=== PATIENT | male | born 1965 | race Caucasian/White ===

== ENCOUNTER → 2022-01-02 10:52 | Outpatient (BNVA) | payer SELFPAY | PROVIDERS: Visit Provider Physician Assistant | DX: Z02.79 Encounter for issue of other medical certificate (principal) ==

== ENCOUNTER 2023-10-12 10:39 | Outpatient (AMB) | payer OTHER, SELFPAY ==
--- NOTE | 2023-10-12 10:48 | HO.NEPHOV ---
HPI HPI Comments History of Present Illness Details I had the pleasure of seeing Sonny in follow-up of his hypertension. He has acquired solitary kidney following nephrectomy for renal cell cancer. He has been drinking a bit more alcohol than is usual, lately. He does not check his blood sugars. He is on Jardiance. His renal functions are at baseline. He has been tolerating metformin. He recently had a small bowel obstruction from adhesions which was conservatively managed. He does not have any nausea vomiting, abdominal pain, chest pain, shortness of breath, nausea vomiting, diarrhea, pedal edema, orthostatic symptoms, hematuria. He has been on Flomax. He is not taking any nonsteroidal anti-inflammatory medications. [facility], [facility] Medical History (Updated 10/12/23 @ 11:13 by Michael Smith MD) Absence of kidney Renal cell cancer Proteinuria Essential (primary) hypertension Surgical History (Updated 10/12/23 @ 09:11 by Virginia Boyle MA) History of nephrectomy Family History (Updated 10/12/23 @ 10:53 by Virginia Boyle MA) Brother Diabetes Mother Diabetes Social History (Updated 10/12/23 @ 10:53 by Vriginia oByle MA) Alcohol intake: current Patient Tobacco Use Status: Never used Tobacco Vital Signs 10/12/23 10:49 Height 5 ft 10 in Weight 234 lb 4 oz BMI 33.6 BP 130/60 Blood Pressure Location Lt brachial Position Sitting Pulse 95 Pulse Source Pulse Oximeter Physical Exam Vital Signs: Last Vital Signs Pulse 95 10/12/23 10:49 BP 130/60 10/12/23 10:49 BMI result Body Mass Index 33.6 Const General: comfortable and no acute distress Orientation/consciousness: patient oriented x3 HEENT Head: Yes normocephalic Mouth: Normal oral and palatal mucosa present Eyes EOM: EOMs intact bilaterally Neck Neck: Yes supple Resp Auscultation: clear to auscultation bilaterally Cardio Jugular venous distension: no JVD Rate: regular rate GI Palpation (GI): Soft to palpation Auscultation: normal bowel sounds General: Yes no CVA tenderness Back/Spine/Pelvis Back: no CVA tenderness Skin General skin exam: no rashes or lesions noted Neuro General: patient oriented x3 and moves all extremities Extrem General: Yes no pedal edema Assessment & Plan Assessment & Plan (1) Essential (primary) hypertension: Code(s): I10 - Essential (primary) hypertension (2) Absence of kidney: Code(s): Z90.5 - Acquired absence of kidney Plan Sonny has acquired solitary kidney after nephrectomy for renal cell cencer. He needs to follow up his Urologist. His blood pressure is currently well controlled. He is tolerating his BRIAN inhibitors. He is diabetic. He does not check his blood sugar regularly. He is not known to have any proteinuria. He is on Jardiance. His volume status is optimal. His blood pressure is currently at goal. He needs to be on a low-sodium diet and should lose weight. He should remain well hydrated and avoid NSAID's. I did not make any medication changes today. All questions were answered and follow-up blood work and urine studies were ordered. Time spent retrieving data, patient encounter and documentation 27 minutes Orders: Orders Electrolytes Today I10 - Essential (primary) hypertension, Z90.5 - Acquired absence of kidney Blood Urea Nitrogen Today I10 - Essential (primary) hypertension, Z90.5 - Acquired absence of kidney Calcium Today I10 - Essential (primary) hypertension, Z90.5 - Acquired absence of kidney UA and rflx microscopic Today I10 - Essential (primary) hypertension, Z90.5 - Acquired absence of kidney Creatinine Today I10 - Essential (primary) hypertension, Z90.5 - Acquired absence of kidney Protein Creatinine Ratio, Ur Today I10 - Essential (primary) hypertension, Z90.5 - Acquired absence of kidney Coding Level of Care Code Est Pt Level 3 (68415) Diagnoses Essential (primary) hypertension I10 Absence of kidney Z90.5
[2023-10-12 10:49] VITALS: BP 130/60; PULSE 95; BMI 33.6
== END 2023-10-12 11:23 | disposition home or self-care (01) ==
PROVIDERS: Visit Provider Internal Medicine Nephrology
DX: I10 Essential (primary) hypertension (principal); Z90.5 Acquired absence of kidney
CPT/HCPCS: 99214

== ENCOUNTER → 2023-10-12 10:39 | Outpatient (BNVA) | payer OTHER, SELFPAY | PROVIDERS: Visit Provider Internal Medicine Nephrology ==

== ENCOUNTER 2024-04-12 09:19 | Outpatient (AMB) | payer OTHER, SELFPAY ==
--- NOTE | 2024-04-12 09:37 | HO.NEPHOV_ITS ---
Vital Signs 04/12/24 09:43 Height 5 ft 10 in Weight 228 lb BMI 32.7 BP 124/70 Blood Pressure Location Lt brachial Position Sitting Pulse 89 Pulse Source Pulse Oximeter Pulse Oximetry (%) 96 Oxygen Delivery Method Room Air Intake Visit Reasons: CKD/ Confirmed Bone Puller Required: No Accompanied by: Self / Same As Patient Allergies No Known Allergies Allergy (Verified 04/12/24 09:46) HPI Comments Details: I had the pleasure of seeing Sonny in follow-up of his hypertension. He has acquired solitary kidney following nephrectomy for renal cell cancer. He has been drinking a bit more alcohol than is usual, lately. He does not check his blood sugars. He is on Jardiance. His renal functions had been at baseline. He has been tolerating metformin. He has H/O small bowel obstruction from adhesions which was conservatively managed. He does not have any nausea vomiting, abdominal pain, chest pain, shortness of breath, nausea vomiting, diarrhea, pedal edema, orthostatic symptoms, hematuria. He has been on Flomax. He is not taking any nonsteroidal anti-inflammatory medications. He is using CPAP regularly. His A1c has gone up. [facility] Medical History (Updated 10/12/23 @ 11:13 by Michael Smith MD) Absence of kidney Renal cell cancer Proteinuria Essential (primary) hypertension Surgical History (Updated 10/12/23 @ 09:11 by Virginia Boyle MA) History of nephrectomy Family History (Updated 10/12/23 @ 10:53 by Virginia Boyle MA) Brother Diabetes Mother Diabetes Social History (Updated 10/12/23 @ 10:53 by Virginia Boyle MA) Alcohol intake: current Patient Tobacco Use Status: Never used Tobacco Physical Exam Const General: comfortable and no acute distress Orientation/consciousness: patient oriented x3 HEENT Head: Yes normocephalic Mouth: Normal oral and palatal mucosa present Eyes EOM: EOMs intact bilaterally Neck Neck: Yes supple Resp Auscultation: clear to auscultation bilaterally Cardio Jugular venous distension: no JVD Rate: regular rate GI Palpation (GI): Soft to palpation Auscultation: normal bowel sounds General: Yes no CVA tenderness Back/Spine/Pelvis Back: no CVA tenderness Skin General skin exam: no rashes or lesions noted Neuro General: patient oriented x3 and moves all extremities Extrem General: Yes no pedal edema Assessment & Plan Assessment & Plan (1) Absence of kidney: Code(s): Z90.5 - Acquired absence of kidney Category: Medical (2) Essential (primary) hypertension: Code(s): I10 - Essential (primary) hypertension Category: Medical Plan Sonny has acquired solitary kidney after nephrectomy for renal cell cencer. He needs to follow up his Urologist. His blood pressure is currently well controlled. He is tolerating his BRIAN inhibitors. He is diabetic. He does not check his blood sugar regularly. He is not known to have any proteinuria. He is on Jardiance. His volume status is optimal. His blood pressure is currently at goal. He needs to be on a low-sodium diet and should lose weight. He should remain well hydrated and avoid NSAID's. I did not make any medication changes today. All questions were answered and follow-up blood work and urine studies were ordered. Orders: Orders Creatinine Today I10 - Essential (primary) hypertension, Z90.5 - Acquired absence of kidney Blood Urea Nitrogen Today I10 - Essential (primary) hypertension, Z90.5 - Acquired absence of kidney Electrolytes Today I10 - Essential (primary) hypertension, Z90.5 - Acquired absence of kidney Protein Creatinine Ratio, Ur Today I10 - Essential (primary) hypertension, Z90.5 - Acquired absence of kidney Coding Level of Care Code Est Pt Level 4 (69344) Diagnoses Absence of kidney Z90.5 Essential (primary) hypertension I10
[2024-04-12 09:43] VITALS: BP 124/70; PULSE 89; O2SAT 96; BMI 32.7
== END 2024-04-12 10:05 | disposition home or self-care (01) ==
PROVIDERS: Visit Provider Internal Medicine Nephrology
DX: Z90.5 Acquired absence of kidney (principal); I10 Essential (primary) hypertension
CPT/HCPCS: 99214

== ENCOUNTER → 2024-04-12 09:19 | Outpatient (BNVA) | payer OTHER, SELFPAY | PROVIDERS: Visit Provider Internal Medicine Nephrology | DX: I10 Essential (primary) hypertension (principal); Z90.5 Acquired absence of kidney ==

== ENCOUNTER 2024-10-11 09:42 | Outpatient (AMB) | payer OTHER, SELFPAY ==
--- NOTE | 2024-10-11 09:48 | HO.NEPHOV ---
Vital Signs 10/11/24 09:52 Height 5 ft 10 in Weight 226 lb 2 oz BMI 32.4 BP 130/80 Blood Pressure Location Lt brachial Position Sitting Pulse 78 Pulse Source Pulse Oximeter Pulse Oximetry (%) 95 Oxygen Delivery Method Room Air Intake Visit Reasons: 6mon follow up-[employer] Operator Required: No Accompanied by: Self / Same As Patient Allergies No Known Allergies Allergy (Verified 10/11/24 09:51) HPI Comments Details: I had the pleasure of seeing Sonny in follow-up of his hypertension. He has acquired solitary kidney following nephrectomy for renal cell cancer. He has been drinking a bit more alcohol than is usual, lately. He does not check his blood sugars. He is on Jardiance. His renal functions had been at baseline. He has been tolerating metformin. He does not have any nausea vomiting, abdominal pain, chest pain, shortness of breath, nausea vomiting, diarrhea, pedal edema, orthostatic symptoms, hematuria. He has been on Flomax. He is not taking any nonsteroidal anti-inflammatory medications. He is using CPAP regularly. [facility] Medical History (Updated 10/12/23 @ 11:13 by Michael Smith MD) Absence of kidney Renal cell cancer Proteinuria Essential (primary) hypertension Surgical History History of nephrectomy Family History Brother Diabetes Mother Diabetes Social History Alcohol intake: current Patient Tobacco Use Status: Never used Tobacco Review of Systems Const All systems reviewed & are unremarkable except as noted in HPI and below Physical Exam Const General: comfortable and no acute distress Orientation/consciousness: patient oriented x3 HEENT Head: Yes normocephalic Mouth: Normal oral and palatal mucosa present Eyes EOM: EOMs intact bilaterally Neck Neck: Yes supple Resp Auscultation: clear to auscultation bilaterally Cardio Jugular venous distension: no JVD Rate: regular rate GI Palpation (GI): Soft to palpation Auscultation: normal bowel sounds General: Yes no CVA tenderness Back/Spine/Pelvis Back: no CVA tenderness Skin General skin exam: no rashes or lesions noted Neuro General: patient oriented x3 and moves all extremities Extrem General: Yes no pedal edema Assessment & Plan Assessment & Plan (1) Absence of kidney: Code(s): Z90.5 - Acquired absence of kidney Category: Medical (2) Essential (primary) hypertension: Code(s): I10 - Essential (primary) hypertension Category: Medical Plan Sonny has acquired solitary kidney after nephrectomy for renal cell cencer. He needs to follow up his Urologist. His blood pressure is currently well controlled. He is tolerating his BRIAN inhibitors. He is diabetic. He does not check his blood sugar regularly. He is not known to have any proteinuria. He is on Jardiance. His volume status is optimal. His blood pressure is currently at goal. He needs to be on a low-sodium diet and should lose weight. He should remain well hydrated and avoid NSAID's. His renal functions are stable. I did not make any medication changes today. All questions were answered and follow-up blood work and urine studies were ordered. Orders: Orders Creatinine 8 Months I10 - Essential (primary) hypertension, Z90.5 - Acquired absence of kidney Blood Urea Nitrogen 8 Months I10 - Essential (primary) hypertension, Z90.5 - Acquired absence of kidney Protein Creatinine Ratio, Ur 8 Months I10 - Essential (primary) hypertension, Z90.5 - Acquired absence of kidney Electrolytes 8 Months I10 - Essential (primary) hypertension, Z90.5 - Acquired absence of kidney Coding Level of Care Code Est Pt Level 4 (00476) Diagnoses Absence of kidney Z90.5 Essential (primary) hypertension I10
[2024-10-11 09:52] VITALS: BP 130/80; PULSE 78; O2SAT 95; BMI 32.4
== END 2024-10-11 10:08 | disposition home or self-care (01) ==
PROVIDERS: Visit Provider Internal Medicine Nephrology
DX: Z90.5 Acquired absence of kidney (principal); I10 Essential (primary) hypertension
CPT/HCPCS: 99214

== ENCOUNTER → 2024-10-11 09:42 | Outpatient (BNVA) | payer OTHER, SELFPAY | PROVIDERS: Visit Provider Internal Medicine Nephrology ==

== ENCOUNTER 2025-06-13 09:06 | Outpatient (AMB) | payer OTHER, SELFPAY ==
--- NOTE | 2025-06-13 09:27 | HO.NEPHOV ---
Vital Signs 06/13/25 09:28 Height 5 ft 10 in Weight 228 lb BMI 32.7 BP 134/70 Blood Pressure Location Lt brachial Position Sitting Pulse 78 Pulse Source Pulse Oximeter Pulse Oximetry (%) 96 Oxygen Delivery Method Room Air Intake Visit Reasons: 6mon follow up-[facility] Caseworker Protective Services Required: No Accompanied by: Self / Same As Patient Allergies No Known Allergies Allergy (Verified 06/13/25 09:28) HPI Comments Details: I had the pleasure of seeing Sonny in follow-up of his hypertension. He has acquired solitary kidney following nephrectomy for renal cell cancer. He has been drinking a bit more alcohol than is usual, lately. He check his blood sugars and is not at goal. He is on Jardiance. His renal functions had been at baseline. He has been tolerating metformin. He does not have any nausea vomiting, abdominal pain, chest pain, shortness of breath, nausea vomiting, diarrhea, pedal edema, orthostatic symptoms, hematuria. He has been on Flomax. He is not taking any nonsteroidal anti-inflammatory medications. He is using CPAP regularly. [facility] Medical History (Updated 10/12/23 @ 11:13 by Michael Smith MD) Absence of kidney Renal cell cancer Proteinuria Essential (primary) hypertension Surgical History History of nephrectomy Family History Brother Diabetes Mother Diabetes Social History Alcohol intake: current Patient Tobacco Use Status: Never used Tobacco Review of Systems Const All systems reviewed & are unremarkable except as noted in HPI and below Physical Exam Vital Signs: Last Vital Signs Pulse 78 06/13/25 09:28 BP 134/70 06/13/25 09:28 Pulse Ox 96 06/13/25 09:28 Oxygen Delivery Method Room Air 06/13/25 09:28 BMI result Body Mass Index 32.7 Const General: comfortable and no acute distress Orientation/consciousness: patient oriented x3 HEENT Head: Yes normocephalic Mouth: Normal oral and palatal mucosa present Eyes EOM: EOMs intact bilaterally Neck Neck: Yes supple Resp Auscultation: clear to auscultation bilaterally Cardio Jugular venous distension: no JVD Rate: regular rate GI Palpation (GI): Soft to palpation Auscultation: normal bowel sounds General: Yes no CVA tenderness Back/Spine/Pelvis Back: no CVA tenderness Skin General skin exam: no rashes or lesions noted Neuro General: patient oriented x3 and moves all extremities Extrem General: Yes no pedal edema Assessment & Plan Assessment & Plan (1) Essential (primary) hypertension: Code(s): I10 - Essential (primary) hypertension Category: Medical (2) Absence of kidney: Code(s): Z90.5 - Acquired absence of kidney Category: Medical Plan Sonny has acquired solitary kidney after nephrectomy for renal cell cencer. He needs to follow up his Urologist. His blood pressure is currently well controlled. He is tolerating his BRIAN inhibitors. He is diabetic. He does not check his blood sugar regularly. He is not known to have any proteinuria. He is on Jardiance. His volume status is optimal. His blood pressure is currently at goal. He needs to be on a low-sodium diet and should lose weight. He should remain well hydrated and avoid NSAID's. His renal functions are stable. I did not make any medication changes today. All questions were answered and follow-up blood work and urine studies were ordered. Orders: Orders Creatinine 6 Months I10 - Essential (primary) hypertension, Z90.5 - Acquired absence of kidney Blood Urea Nitrogen 6 Months I10 - Essential (primary) hypertension, Z90.5 - Acquired absence of kidney Electrolytes 6 Months I10 - Essential (primary) hypertension, Z90.5 - Acquired absence of kidney Calcium 6 Months I10 - Essential (primary) hypertension, Z90.5 - Acquired absence of kidney Protein Creatinine Ratio, Ur 6 Months I10 - Essential (primary) hypertension, Z90.5 - Acquired absence of kidney Coding Level of Care Code Est Pt Level 4 (83531) Diagnoses Essential (primary) hypertension I10 Absence of kidney Z90.5
[2025-06-13 09:28] VITALS: BP 134/70; PULSE 78; O2SAT 96; BMI 32.7
--- OUTSIDE RECORDS SUMMARY | 2025-06-13 09:36 | XMS_ITS | Clinical Summary ---
Author Organization [facility] Address [address] [place] [address] Phone Care Team Providers Care Furniture Mover Helper Name Role Phone Dave Rabago Primary Care Provider Social History Tobacco Use Types Packs/Day Years Used Date Smoking Tobacco: Never Assessed Sex and Gender Information Value Date Recorded Sex Assigned at Not on file Legal Sex Male 3:12 AM EST Gender Identity Not on file Sexual Orientation Not on file Last Filed Vital Signs Vital Sign Reading Time Taken Comments Blood Pressure 116/64 08/16/2024 10:19 AM EDT Pulse 68 08/16/2024 10:19 AM EDT Temperature - - Respiratory Rate - - Oxygen Saturation - - Inhaled Oxygen Concentration - - Weight 101 kg (223 lb) 08/16/2024 10:19 AM EDT Height 177.8 cm (5' 10 ) 08/16/2024 10:19 AM EDT Body Mass Index 32 08/16/2024 10:19 AM EDT Plan of Treatment Upcoming Encounters Date Type Department Care Team (Late st Contact Info) Description 07/26/2025 9:20 AM EDT Office Visit Gastroenterology - [place] 175 [facility] [address] [id number] Milind Kim MD 175 [facility] [address] [place] [address] Health Maintenance Due Date Last Done Comments DTaP,Tdap,and Td Vaccines (1 - Tdap) 1982 Pneumococcal Vaccine: 50+ Ye ars (1 of 1 - PCV) 2013 Zoster Vaccines (1 of 2) 2013 Cholesterol Screening (Lipid Panel) 12/23/2023 HIV Screening 12/23/2023 Hepatitis C Screening 12/23/2023 Social Influencers of Health Screening 12/23/2023 COVID-19 Vaccine (1 - 2023-2 5 season) 2024 Depression Screening 11/23/2024 Influenza Vaccine (#1) 2025 Colorectal Cancer Screening: Colonoscopy 09/22/2034 09/22/2024 RSV Immunization Adult Patie nts (1 - 1-dose 75+ series) 2038 HIB Vaccines Aged Out No longer eligi ble based on patient's age to complete this topic HPV Vaccines Aged Out No longer eligi ble based on patient's age to complete this topic Hepatitis A Vaccines Aged Out No long er eligible based on patient's age to complete this topic Hepatitis B Vaccines Aged Out No long er eligible based on patient's age to complete this topic IPV Vaccines Aged Out No longer eligi ble based on patient's age to complete this topic MMR Vaccines Aged Out No longer eligi ble based on patient's age to complete this topic Meningococcal ACWY Vaccine Aged Out N o longer eligible based on patient's age to complete this topic Meningococcal B Vaccine Aged Out No l onger eligible based on patient's age to complete this topic RSV Immunization Patients Un deb 20 months Aged Out No longer eligible b ased on patient's age to complete this topic Varicella Vaccines Aged Out No longer eligible based on patient's age to complete this topic Procedures Procedure Name Priority Date/Time Associated Diagnosis Comments COLONOSCOPY Routine 09/22/2024 9:47 AM EDT from Last 3 Months or Most Recently Relevant to Health Maintenance Results * COLONOSCOPY (09/22/2024 9:47 AM EDT) Anatomical Region Laterality Modality Endoscopy Milind Kim MD GI~PROCEDURE ORDERABLES Final Re sult from Last 3 Months or Most Recently Relevant to Health Maintenance Care Teams Furniture Mover Helper Relationship Specialty Start Date End Date Dave Rabago DO [address], [place] PCP - General Family Medicine 04/27/18
--- OUTSIDE RECORDS SUMMARY | 2025-06-13 09:36 | XMS_ITS | Clinical Summary ---
Author Organization [employer] [facility] Address [address] [place] [address] Care Team Providers Care Manager Reporting Name Role Phone Dave Rabago MD Primary Care Provider [phone] Allergies No known active allergies Medications Medication Sig Dispensed Refills Start Date End Date Status metFORMIN (GLUCOPHAGE) tablet 500 mg Take 1,000 mg by mouth 2 (two) times a day with meals. 0 Active lisinopril (PRINIVIL,ZESTRIL) tablet 5 mg Take 5 mg by mouth daily. 0 Active atorvastatin (LIPITOR) tablet 40 mg Take 40 mg by mouth daily. 0 Active amLODIPine (NORVASC) tablet 10 mg Take 10 mg by mouth daily. 0 Active famotidine (PEPCID) 20 MG tablet Take 20 mg by mouth 2 (two) times a day. 0 Active tamsulosin (FLOMAX) 0.4 MG CAPS Take 0.4 mg by mouth daily. 0 Active furosemide (LASIX) 40 MG tablet Take 40 mg by mouth 2 (two) times a day. 0 Active Active Problems No known active problems Social History Tobacco Use Types Packs/Day Years Used Date Smoking Tobacco: Never Smokeless Tobacco: Never Alcohol Use Standard Drinks/Week Comments No 0 (1 standard drink = 0.6 oz pur e alcohol) Sex and Gender Information Value Date Recorded Sex Assigned at Not on file Gender Identity Not on file Sexual Orientation Not on file Job Start Date Occupation Industry Not on file Not on file Not on file Last Filed Vital Signs Vital Sign Reading Time Taken Comments Blood Pressure 138/78 04/27/2018 10:46 AM EDT Pulse 97 04/27/2018 10:46 AM EDT Temperature 36.4 C (97.6 F) 04/27/2018 10:46 AM EDT Respiratory Rate - - Oxygen Saturation - - Inhaled Oxygen Concentration - - Weight 109.4 kg (241 lb 3.2 oz) 06/05/2 018 10:46 AM EDT Height 177.8 cm (5' 10 ) 04/27/2018 10: 46 AM EDT Body Mass Index 34.61 04/27/2018 10:46 AM EDT Plan of Treatment Health Maintenance Due Date Last Done Comments Hepatitis C Screening 1965 COVID-19 Vaccine (#1) 1963 Depression Screening 1975 Preventative Health Evaluation 1981 DTap / Tdap / Td (1 - Tdap) 1982 Colon Cancer Screening (Colonoscopy) 2008 Shingrix-Zoster Vaccine (1 of 2) 2013 Influenza Vaccine (#1) 2025 RSV Adult > 60+ Yrs or Pregn ant (1 - 1-dose 75+ series) 2038 Hepatitis B Vaccines Aged Out No long er eligible based on patient's age to complete this topic Pneumococcal Vaccine Aged Out No long er eligible based on patient's age to complete this topic RSV Ped < 20 months Aged Out No longe r eligible based on patient's age to complete this topic Care Teams Manager Reporting Relationship Specialty Start Date End Date Dave Rabago MD [address] [place] [address] PCP - General Family Medicine 04/27/18
--- OUTSIDE RECORDS SUMMARY | 2025-06-13 09:37 | XMS_ITS | Clinical Summary ---
Author Organization [facility] Address [address] [facility] [address] [place] [address] Phone Care Team Providers Care Derrick Boat Runner Name Role Phone Hasmukh Rabagoy Taryn PENA Primary Care Provider [phone] Allergies No known active allergies Medications atorvastatin (LIPITOR) 40 MG tablet Take 1 tablet by mouth 1 (one) time each day Active metFORMIN (FORTAMET) 500 MG 24 hr tablet Take 2 tablets by mouth 2 (two) times a day Active tamsulosin (FLOMAX) 0.4 MG 24 hr capsule Take 1 capsule by mouth 1 (one) time each day Active famotidine (PEPCID) 40 MG tablet Take 40 mg by mouth 2 (two) times a day Active Jardiance 10 MG tablet Take 1 tablet by mouth 1 (one) time each day 2 Active cyanocobalamin (VITAMIN B-12) 1000 MCG tablet cyanocobalamin (vit B-12) 1,000 mcg tablet TAKE 1 TABLET BY MOUTH EVERY DAY Active Turmeric (QC TUMERIC COMPLEX PO) Take 1,500 mg by mouth Active chlorthalidone 25 MG tablet TAKE 1/2 TABLET BY MOUTH ONCE DAILY 45 tablet 3 2 Active amLODIPine (NORVASC) 10 MG tablet TAKE 1 TABLET BY MOUTH EVERY DAY 90 tablet 2 3 Active lisinopril 20 MG tablet TAKE 1 TABLET BY MOUTH TWICE A DAY 180 tablet 2 3 Active Active Problems Problem Noted Date Diagnosed Date Cobalamin deficiency 05/21/2023 Hemorrhage from nose 05/21/2023 Obese class I 05/21/2023 Patient encounter status 05/21/2023 Renal impairment 05/21/2023 Basal cell carcinoma of nose 10/14/2022 Absent kidney 02/03/2022 Anemia of chronic disease 02/03/2022 Hypertensive disorder 02/03/2022 Proteinuria, not otherwise specified 11/05/2021 Benign essential hypertension 04/23/2021 Total nephrectomy 04/23/2021 Resolved Problems Problem Noted Date Diagnosed Date Resolved Date Hypertension 02/04/2022 11/12/2022 Gastroesophageal reflux disease 02/03/2022 02/03/2022 Hyperlipidemia 02/03/2022 02/03/2022 Non-alcoholic fatty liver 02/03/2022 Sleep apnea 02/03/2022 02/03/2022 Type 2 diabetes mellitus 02/03/2022 Overview (02/03/2022): endo Immunizations Immunization Administration Dates Next Due Moderna SARS-COV-2 01/18/2021 Pfizer SARS-COV-2 02/18/2021 Family History Medical History Relation Comments Cancer Father Diabetes Father Hypertension Father Hypertension Mother Relation Status Comments Father Mother Alive Social History Tobacco Use Types Packs/Day Years Used Date Smoking Tobacco: Never Smokeless Tobacco: Never Tobacco Cessation:Counseling Given: Not Answered Alcohol Use Standard Drinks/Week Comments Yes 0 (1 standard drink = 0.6 oz pure alcohol) Alcoholic Drinks/day: Occasional social drink Sex and Gender Information Value Date Recorded Sex Assigned at Not on file Legal Sex Male 5:03 PM EST Gender Identity Not on file Sexual Orientation Not on file Last Filed Vital Signs Vital Sign Reading Time Taken Comments Blood Pressure 119/62 11/20/2022 4:01 PM EST Pulse 82 11/20/2022 4:01 PM EST Temperature - - Respiratory Rate - - Oxygen Saturation 96% 11/20/2022 4:01 PM EST Inhaled Oxygen Concentration - - Weight 107 kg (236 lb) 11/20/2022 4:01 PM EST Height 177.8 cm (5' 10 ) 04/24/2020 12:00 PM EDT Body Mass Index 33.86 04/24/2020 12:00 PM EDT Plan of Treatment Health Maintenance Due Date Last Done Comments Pneumococcal Vaccine: 50+ Ye ars (1 of 2 - PCV) 1982 Colorectal Cancer Screening: Annual FOBT 2012 Colorectal Cancer Screening: Colonoscopy 2012 Colorectal Cancer Screening: Sigmoidoscopy 2012 Influenza Vaccine (#1) 2025 Hepatitis B Vaccine Aged Out No longe r eligible based on patient's age to complete this topic Insurance [facility] Care Teams Derrick Boat Runner Relationship Specialty Start Date End Date Dave Rabago DO [address] [place] [address] PCP - General 12/03/20
--- OUTSIDE RECORDS SUMMARY | 2025-06-13 09:37 | XMS_ITS | Clinical Summary ---
Author Organization [facility] Address [address] [place] [id number] Phone Care Team Providers Care Shoemaking Cutter Name Role Phone Dave Rabago DO Primary Care Provider Allergies No known active allergies Medications blood sugar diagnostic (FREESTYLE LITE) Strp strips FreeStyle Lite Strips PT IS TESTING 1 TO 3 TIMES A DAY FOR TYPE 2 DIABETES MELLITUS E11.9 Active salicylic acid (DAILY ACNE WASH) 2 % Clsr Take 1,000 mcg by mouth daily. 2 Active atorvastatin (LIPITOR) 40 MG tablet atorvastatin 40 mg tablet TAKE 1 TABLET BY MOUTH EVERY DAY APPOINTMENT REQUIRED FOR FUTURE FILLS 2 Active JARDIANCE 25 mg tablet Take 25 mg by mouth every morning. 2 Active famotidine (PEPCID) 20 MG tablet famotidine 20 mg tablet TAKE 2 TABLETS BY MOUTH EVERY DAY 2 Active lisinopril (PRINIVIL,ZEST RIL) 20 MG tablet lisinopril 20 mg tablet TAKE ONE TABLET BY MOUTH TWICE A DAY 2 Active metFORMIN (GLUCOPHAGE-XR ) 500 MG 24 hr tablet Take 1,000 mg by mouth 2 (two) times a day with meals. 2 Active amLODIPine (NORVASC) 10 MG tablet amlodipine 10 mg tablet TAKE ONE TABLET BY MOUTH EVERY DAY 1 Active chlorthalidone (HYGROTON) 25 MG tablet chlorthalidone 25 mg tablet TAKE 1/2 TABLET BY MOUTH ONCE DAILY 2 Active cyanocobalamin , vitamin B-12, 1000 MCG tablet Take 1,000 mcg by mouth daily. Active Active Problems Problem Noted Date Diagnosed Date Basal cell carcinoma (BCC) of right side of nose 10/14/2022 Family History Medical History Relation Comments Cancer Father Dementia Mother Relation Status Comments Father Mother Social History Tobacco Use Types Packs/Day Years Used Date Smoking Tobacco: Never Smokeless Tobacco: Never Tobacco Cessation:Counseling Given: Not Answered Alcohol Use Standard Drinks/Week Comments Not Currently 0 (1 standard drink = 0.6 oz pur e alcohol) Education Answer Date Recorded Are you interested in more education? Not on meek e 03/19/2023 Are you concerned about learning? Not on file 03/19/2023 No 03/19/2023 No 03/19/2023 Digital Access Answer Date Recorded No 04/20/2023 No 04/20/2023 No 04/20/2023 Reliable internet access at home? Not on file 04/20/2023 Device with a working camera? Not on file Sex and Gender Information Value Date Recorded Sex Assigned at Not on file Legal Sex Male 7:14 PM EST Gender Identity Not on file Sexual Orientation Not on file Plan of Treatment Health Maintenance Due Date Last Done Comments Adult Td,Tdap Booster 1963 CREATININE LEVEL 1963 LIPID PANEL 1963 POTASSIUM LEVEL 1963 DEPRESSION SCREENING 1975 HEPATITIS C SCREENING 1981 HIV ONE-TIME SCREENING (18-6 5 YEARS) 1981 COLOGUARD 2008 COLONOSCOPY 2008 COLORECTAL CANCER SCREENING 2008 FIT TEST 2008 FOBT 2008 SIGMOIDOSCOPY 2008 VIRTUAL COLONOSCOPY 2008 PNEUMOCOCCAL VACCINES (50+ years) (1 of 1 - PCV) 2013 ZOSTER VACCINES (1 of 2) 2013 RSV VACCINE (1 - Risk 60-74 years 1-dose series) 2023 COVID-19 VACCINE (3 - 2023-2 5 season) 2024 02/18/2021, 01/18/2021 SMOKING STATUS SCREENING (On ce After 26 Yrs) Completed 10/14/2022 HEPATITIS A VACCINES Aged Out No long er eligible based on patient's age to complete this topic HIB VACCINES Aged Out No longer eligi ble based on patient's age to complete this topic MENINGOCOCCAL VACCINES (ACWY) Aged Out No longer eligible based on patient's age to complete this topic MENINGOCOCCAL VACCINES (B) Aged Out N o longer eligible based on patient's age to complete this topic Medical Devices Not on file Insurance O O O O O O Care Teams Shoemaking Cutter Relationship Specialty Start Date End Date Dave Rabago DO [address] [facility] [place] [address] PCP - General Family Medicine 10/09/22 Additional Source Comments The information contained in this document represents components of the legal health record. It is not the complete legal health record.[facility]
== END 2025-06-13 09:48 | disposition home or self-care (01) ==
LOC: HO.HKAS 09:07
PROVIDERS: Visit Provider Internal Medicine Nephrology
DX: I10 Essential (primary) hypertension (principal); Z90.5 Acquired absence of kidney
CPT/HCPCS: 99214